=== PATIENT | female | born 2000 | race African-American/Black ===

== ENCOUNTER 2020-10-06 23:45 | Emergency (ER) | payer MEDICAID ==
[~2020-10-06] VITALS: Ht 154.9 cm; Wt 84.0 kg
[2020-10-07] MEDS ORDERED: KETOROLAC 15MG/ML VIAL IM ONE (00:15)
[2020-10-07 00:37] VITALS: BP 115/66
[2020-10-07] MEDS ORDERED: IBUP-2029 MT (02:28)
[2020-10-07] MEDS ORDERED: HYDR-4001 MT (02:31)
== END 2020-10-07 02:40 | disposition home or self-care (01) ==
LOC: ER 23:45
DX: M79.641 Pain in right hand (principal); M25.531 Pain in right wrist; V03.90XA Pedestrian on foot injured in collision with car, pick-up truck or van, unspecified whether traffic or nontraffic accident, initial encounter; Y93.89 Activity, other specified; Y92.488 Other paved roadways as the place of occurrence of the external cause
CPT/HCPCS: 29125; 73110; 73130; 96372; 99284; J1885

== ENCOUNTER 2021-12-27 13:59 | Emergency (ER) | payer MEDICAID, OTHER ==
[~2021-12-27] VITALS: Ht 154.9 cm; Wt 89.0 kg
[~2021-12-27 13:59] MED LIST: HYDR-4001 MT; IBUP-2029 MT
[2021-12-27 16:56] LABS: CLARITY URINE CLEAR (CLEAR); COLOR URINE YELLOW (YELLOW); KETONES URINE NEGATIVE (NEGATIVE); LEUKOCYTE ESTERASE URINE NEGATIVE (NEGATIVE); NITRITE URINE NEGATIVE (NEGATIVE); OCCULT BLOOD URINE NEGATIVE (NEGATIVE); PROTEIN URINE NEGATIVE (NEGATIVE); SPECIFIC GRAVITY URINE 1.024 (1.005-1.030); UROBILINOGEN URINE 0.2 E.U./dL (0.2-1.0)
[2021-12-27] MEDS ORDERED: METR-167 MT (17:22)
[2021-12-27 17:55] VITALS: BP 102/54
[2021-12-31 04:07] LABS: NEISSERIA GONORRHOEAE NAA Negative (Negative)
== END 2021-12-27 17:56 | disposition home or self-care (01) ==
LOC: ER 14:25
DX: N83.201 Unspecified ovarian cyst, right side (principal); N76.0 Acute vaginitis
CPT/HCPCS: 76856; 81003; 87210; 87491; 87591; 99284